=== PATIENT | female | born 1985 | race Hispanic/Latino ===

== ENCOUNTER 2016-06-13 10:34 | Emergency (ER) | payer MEDICAID ==
[2016-06-13 11:12] LABS: URINE RBC NONE SEEN (0-5/hpf)
[2016-06-13 11:20] LABS: URINE APPEARANCE CLEAR; URINE BILIRUBIN NEGATIVE (NEGATIVE); URINE COLOR YELLOW; URINE GLUCOSE NORMAL (NEGATIVE); URINE KETONE 10mg/dL (1+) (NEGATIVE); URINE LEUKOCYTE ESTERASE NEGATIVE (NEGATIVE); URINE NITRITE NEGATIVE (NEGATIVE); URINE PROTEIN NEGATIVE (NEG - TRACE); URINE SPECIFIC GRAVITY > OR = 1.030 (0.001-1.035); URINE UROBILINOGEN 0.2mg/dL (Normal) (NEG-1mg/dL)
[2016-06-13 11:21] LABS: URINE BLOOD NEGATIVE (NEGATIVE); URINE MUCUS UP TO 25%/lpf (Up to 25%); URINE SQUAMOUS EPITHELIAL CELL 0-5/hpf (<= 15/hpf); URINE WBC 0-4/hpf (0-4/hpf)
[2016-06-13] MEDS ORDERED: HYDROmorphone HCL 1 MG/ML SYR ONE (11:39)
[2016-06-13] MEDS ORDERED: ONDANSETRON HCL 4 MG/2 ML VIAL ONE (11:39)
[2016-06-13] MEDS ORDERED: KETOROLAC TROMETHAMINE 30 MG/ML VIAL ONE (11:39)
[2016-06-13 11:42] LABS: BASOPHILS 0.3 % (0.0-2.0); EOSINOPHILS 1.3 % (0.0-6.0); EOSINOPHILS# 0.1 X 10^3uL (0.0-0.4); HEMATOCRIT 37.4 % (36.0-48.0); HEMOGLOBIN 12.5 g/dL (12.0-16.0); LYMPHOCYTES 33.6 % (20.0-40.0); LYMPHOCYTES# 2.1 X 10^3uL (0.8-3.8); MEAN CELL VOLUME 79.8 fL (80.0-100.0); MEAN CORPUS. HGB CONCENTRATION 33.5 g/dL (32.0-36.0); MEAN CORPUSCULAR HEMOGLOBIN 26.8 pg (29.0-35.0); MEAN PLATELET VOLUME 7.9 fL (7.4-10.4); MONOCYTES 8.5 % (2.0-10.0); MONOCYTES# 0.5 X 10^3uL (0.2-1.0); NEUTROPHILS 56.3 % (54.0-75.0); NEUTROPHILS# 3.5 X 10^3uL (2.6-6.7); PLATELET COUNT 216 X 10^3uL (130-440); RED BLOOD COUNT 4.68 X 10^6uL (4.20-6.10); RED CELL DISTRIBUTION WIDTH 13.4 % (11.5-14.5); WHITE BLOOD COUNT 6.2 X 10^3uL (3.9-10.7)
[2016-06-13 11:54] LABS: ALBUMIN 3.8 g/dL (3.5-5.0); ALKALINE PHOSPHATASE 54 U/L (38-126); ALT 29 U/L (9-52); AST 24 U/L (14-36); BILIRUBIN, DIRECT 0.1 mg/dL (0.0-0.4); BILIRUBIN, TOTAL 0.8 mg/dL (0.2-1.3); BLOOD UREA NITROGEN 9 mg/dL (7-17); CALCIUM 8.8 mg/dL (8.4-10.2); CHLORIDE 105 mmol/L (98-107); CREATININE 0.7 mg/dL (0.5-1.0); EST GLOMERULAR FILTRATION RATE > 60 mL/min; GLUCOSE 67 mg/dL (70-100); LIPASE 161 U/L (23-300); SODIUM 138 mmol/L (137-145)
--- NOTE | 2016-06-13 12:28 | CT REPORT ---
HISTORY: Left flank pain COMPARISON: None. TECHNIQUE: This examination was performed using automated exposure control, adjustment of mA or kV according to patient size, and/or use of iterative reconstruction technique. Axial contiguous images of the abdome n and pelvis were obtained without oral or IV contrast, coronal reformat images also performed. FINDINGS: The visualized lung parenchyma and cardiac structures are unremarkable. The right and left kidneys are unremarkable. There is no hydronephrosis or hydroureter. There is no c alculus. There is no perinephric fatty stranding. There is no hepatic mass or intrahepatic biliary dilatation identified on limited noncontrast imaging . The gallbladder is unremarkable, there is no cholelithiasis or pericholecystic fluid. The spleen is unremarkable. There is no pancreatic mass or ductal dilatation. The adrenal glands are unremark able. The upper aspect of the liver and spleen were not included on the study. The stomach, small bowel and large bowel are unremarkable. There is no free intraperitoneal fluid or gas. There is no mesenteric edema or inflammatory process. Vascular structures of the abdomen and pelvis are unremarkable. No pathologic adenopathy is identified. The bladder is unremarkable. The u terus is enlarged, measuring 12 x 8 cm in the axial plane. The adnexal masses are unremarkable, excep t for a questionable left-sided cyst or mass measuring up to 2.6 cm. There is normal alignment to the lumbar spine. IMPRESSION: No evidence for renal or ureteral stone or obstruction. 2.6 cm left adnexal hypodensity most likely a ovarian cyst. Pelvic ultrasound may be helpful. Final Electronic Signature: This report was electronically signed by Mikal Sawyer MD on 06/13/2016 12 :26 PM. mera /
--- NOTE | 2016-06-13 13:19 | ER PHYSICIAN DOCUMENTATION ---
Physician Documentation [facility] Name:Sonja Caballero Age:31 yrs Sex:Female :1985 Arrival Date:06/13/2016 Time:10:34 Bed4 Private MD:Caleb Posada ED, Chris Disposition: 06/13 12:55 Chart complete. cd Disposition: 06/13/16 12:57 Discharged to Home/Self Care. Impression: Abdominal Pain, Left Lower Quadrant. - Condition is Fair. - Discharge Instructions: ABDOMINAL PAIN, Unknown Cause, (Female), Cysts, Ovarian - OVARIAN CYST. - Prescriptions for Hydrocodone- Acetaminophen 5-325 mg Oral - take 1 tablet by ORAL route every 6 hours As needed; 10 tablet. - Medical Reconciliation form form. - Follow up: Al Black MD; When: 2 - 3 days; Reason: Recheck today's complaints, Continuance of care. - Problem is new. - Symptoms have improved. - Notes: Rest, drink plenty of fluids and take Ibuprofen 600mg by mouth every 6 hours with food for pain... or Hydrocodone one tablet by mouth every 6 hours with food for severe pain. See Dr. Chase in 2 - 3 days for follow up. HPI: 10:40 This 31 yrs old Female presents to ER via Private Vehicle with complaints of cd Abdominal Pain. 10:40 The patient presents with abdominal pain in the left lower quadrant. Onset: The cd symptoms/episode began/occurred yesterday, she reports Ibuprofen helped yesterday, but not today.. The symptoms do not radiate. Associated signs and symptoms: Pertinent positives: blood in stools, constipation, diarrhea, fever, nausea, vaginal discharge, vaginal bleeding, vomiting, Pertinent negatives: anorexia. The symptoms are described as achy, constant. Severity of pain: At its worst the pain was moderate in the emergency department the pain is unchanged. Risk factors for ectopic : none. Patient does report having an Ovarian Cyst in the past. The patient has experienced a previous episode, and the symptoms today are exactly the same. 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 st Historical: - Allergies: No known drug Allergies; - Home Meds: 1. None - PMHx: ENDOMETROSIS; OVARIAN CYST; - PSHx: cyst removals; - Tetanus: < 10 years. - Ebola Screening: : Patient denies exposure to infectious person. Patient denies travel to an Ebola-affected area in the 21 days before illness onset. . - Social history: Smoking status: Patient states was never smoker of tobacco. Patient/guardian denies using alcohol, marijuana. ROS: 11:00 Constitutional: Negative for chills, fever, poor PO intake. cd 11:00 Abdomen/GI: Positive for abdominal pain, anorexia, Negative for nausea, vomiting, diarrhea, hematemesis, black/tarry stool, rectal bleeding. 11:00 : Positive for pelvic pain, Negative for urinary symptoms, flank pain, burning with urination, foul smelling urine. 11:00 All other systems are negative. Exam: 11:10 ENT: Nares patent. No nasal discharge, no septal abnormalities noted. Tympanic cd membranes are normal and external auditory canals are clear. Oropharynx with no redness, swelling, or masses, exudates, or evidence of obstruction, uvula midline. Mucous membranes moist. Back: No spinal tenderness. No costovertebral tenderness. Full range of motion. Skin: Warm, dry with normal turgor. Normal color with no rashes, no lesions, and no evidence of cellulitis. 11:10 MS/ Extremity: Pulses equal, no cyanosis. Neurovascular intact. Full, normal range cd of motion. 11:10 Constitutional: The patient appears alert, awake, non-diaphoretic, non-toxic, well developed, well nourished, anxious, in obvious distress, moderately distressed. 11:10 Cardiovascular: Rate: bradycardic, Rhythm: regular. 11:10 Respiratory: the patient does not display signs of respiratory distress, Breath sounds: are normal. 11:10 Abdomen/GI: Inspection: abdomen appears normal, Bowel sounds: normal, Palpation: moderate abdominal tenderness, in the left lower quadrant, mass, is not appreciated, rebound tenderness, is not appreciated, voluntary guarding, is not appreciated, involuntary guarding, is not appreciated, no appreciated organomegaly, Indicators: McBurney's point is not tender, Lara's sign is negative. 11:10 Neuro: Awake and alert, GCS 15, oriented to person, place, time, and situation. cd Cranial nerves II-XII grossly intact. Motor strength 5/5 in all extremities. Sensory grossly intact. Cerebellar exam normal. Normal gait. Vital Signs: 10:55 BP 116 / 60; Pulse 72; Resp 18; Temp 97.5; Pulse Ox 97% on R/A; Pain 7/10; st 11:50 Pain 4/10; st 11:50 BP 96 / 61 (auto/); st 11:52 Pulse Ox 99% on 2 lpm NC; st 12:00 BP 94 / 55 (auto/); Pulse 54; st 12:02 Pulse Ox 99% ; st 12:30 BP 93 / 54 (auto/); Pulse 54; st 12:32 Pulse Ox 99% ; st 13:02 Pain 0/10; st MDM: 10:45 Data interpreted: Pulse oximetry: on room air is 99 %. Interpretation: normal. cd 10:46 Patient medically screened. cd 11:20 Differential diagnosis: diverticulitis, Ectopic , Endometriosis, Ovarian cd Torsion, Pyelonephritis, Ureterolithiasis, urinary tract infection, Ovarian Cyst. 11:25 Data reviewed: vital signs, nurses notes, old medical records, lab test result(s), and cd as a result, I will continue to observe the patient, order radiologic studie(s), CT scan, administer IV fluids, NS bolus, NS maintenence, prescribe pain medication, Dilaudid, Toradol. 12:50 Counseling: I had a detailed discussion with the patient and/or guardian regarding: the cd historical points, exam findings, and any diagnostic results supporting the discharge/admit diagnosis, lab results, radiology results, the need for outpatient follow up, for a recheck, for a referral to a specialist, an OB/Gyne specialist, to return to the emergency department if symptoms worsen or persist or if there are any questions or concerns that arise at home. 12:55 Response to treatment: the patient's symptoms have resolved after treatment, the cd patient's condition has returned to base line, the patient is now symptom free, patient is well hydrated. and as a result, I will discharge patient. 06/13 11:22 Order name: UA W/ MICRO -CULTURE IF IND; Complete Time: 11:46 EDMS 06/13 11:46 Interpretation: Normal Except: URINE KETONE 10mg/dL (1+); URINE BACTERIA 10-20 cd ORGANISMS/hpf; Dehydration. 06/13 11:55 Order name: CBC AUTO DIF, MDIF/RMOR IF IND; Complete Time: 12:02 EDMS 06/13 12:40 Interpretation: Normal. cd 06/13 11:55 Order name: BASIC METABOLIC PANEL; Complete Time: 12:02 EDMS 06/13 Interpretation: Normal Except: GLUCOSE 67; Normal. cd 06/13 11:55 Order name: HEPATIC PANEL; Complete Time: 12:02 EDMS 06/13 12:40 Interpretation: Normal. cd 06/13 11:55 Order name: LIPASE; Complete Time: 12:02 EDMS 06/13 12:41 Interpretation: Normal. cd 06/13 11:59 Order name: HCG, SERUM; Complete Time: 12:02 EDMS 06/13 12:41 Interpretation: Normal. cd 06/13 12:30 Order name: CAT SCAN; ABD/[place] [id number]; Complete Time: 12:56 EDMS 06/15 09:52 Interpretation: Abnormal: See Report. 06/13 10:51 Order name: Urine Dip; Complete Time: 10:52 st 06/13 11:13 Order name: NPO; Complete Time: 11:25 cd Dispensed Medications: 11:25 Drug: NS 0.9% 1000 ml; Route: IV; Rate: bolus; Site: right antecubital; st 13:04 Follow up: IV Status: Completed infusion; IV Intake: 1000ml st 11:34 Drug: Zofran 4 mg; Route: IVP; Infused Over: 2 mins; Site: right antecubital; st 11:50 Follow up: Response: Nausea is decreased st 11:34 Drug: Dilaudid 0.5 mg; Route: IVP; Site: right antecubital; st 11:51 Follow up: Response: Pain is decreased st 11:34 Drug: Toradol 30 mg; Route: IVP; Site: right antecubital; st 11:51 Follow up: Response: Pain is decreased st Point of Care Testing: Urine Dip: 10:52 pH: 5.0; ; Specific [place]: 1.030; Ketones: Small; Glucose: Negative; Protein: st Negative; Leukocytes: Negative; Nitrite: Negative ; Blood: Negative; Bilirubin: Negative ; Urobilinogen: Normal Signatures: Nava Rao RN RN st Daley, Chris, MD MD cd
--- NOTE | 2016-06-13 13:19 | ER NURSING DOCUMENTATION ---
Nurse's Notes [facility] [place] Name:Sonja Caballero Age:31 yrs Sex:Female :1985 Arrival Date:06/13/2016 Time:10:34 Bed4 Private MD:Caleb Posada Diagnosis:Abdominal Pain, Left Lower Quadrant Presentation: 06/13 10:40 Acuity: WINTER 3 st 10:53 Presenting complaint: Patient states: pt states she had left flank pain into the LLQ st starting yesterday. yesterday Motrin help today it did not. Transition of care: Home. 10:53 Method Of Arrival: Private Vehicle st Triage Assessment: 10:54 General: Appears in no apparent distress, Behavior is cooperative. Pain: Complains of st pain in posterior aspect of left lateral abdomen and left lower quadrant Pain currently is 7 out of 10 on a pain scale. Quality of pain is described as aching, Pain began 1 day ago. Cardiovascular: No deficits noted. Respiratory: No deficits noted. GI: Abdomen is flat, non- distended Abd is soft and non tender X 4 quads. : Urine is clear, Denies burning with urination, inability to void, urinary frequency, vaginal bleeding. 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 st Historical: - Allergies: No known drug Allergies; - Home Meds: 1. None - PMHx: ENDOMETROSIS; OVARIAN CYST; - PSHx: cyst removals; - Tetanus: < 10 years. - Ebola Screening: : Patient denies exposure to infectious person. Patient denies travel to an Ebola-affected area in the 21 days before illness onset. . - Social history: Smoking status: Patient states was never smoker of tobacco. Patient/guardian denies using alcohol, marijuana. Screenin:56 Infectious Disease Risk None. Abuse screen: Denies threats or abuse. Denies injuries st from another. pt states she feels safe at home. Nutritional screening: No deficits noted. Assessment: 11:50 General: pt resting quielty.. st 13:02 General: pt feeling much better. . st Vital Signs: 10:55 BP 116 / 60; Pulse 72; Resp 18; Temp 97.5; Pulse Ox 97% on R/A; Pain 7/10; st 11:50 Pain 4/10; st 11:50 BP 96 / 61 (auto/); st 11:52 Pulse Ox 99% on 2 lpm NC; st 12:00 BP 94 / 55 (auto/); Pulse 54; st 12:02 Pulse Ox 99% ; st 12:30 BP 93 / 54 (auto/); Pulse 54; st 12:32 Pulse Ox 99% ; st 13:02 Pain 0/10; st ED Course: 10:35 Patient arrived in ED. ama 10:35 Caleb Posada MD is Private Physician. ama 10:40 Nava Rao RN is Primary Nurse. st 10:[address] 10:46 Sang Lopez MD is Attending Physician. cd 10:52 Urine collected. Clean catch specimen. st 10:56 Valuables Remains with patient Patient has correct armband on for positive st identification. Placed in gown. Bed in low position. Call light in reach. Side rails up X 1. Pulse Ox - RN Monitoring Only NIBP On - RN Monitoring Only. 11:26 Inserted peripheral IV: 20 gauge in right antecubital area and blood collected. Missed st attempts: 20 gauge X 1 in left antecubital area. 12:[address] moira 12:[address] Patient [address] back from [address]. moira 12:56 Al Black MD is Referral Physician. cd 13:02 Diet: Patient given juice. st Administered Medications: 11:25 Drug: NS 0.9% 1000 ml; Route: IV; Rate: bolus; Site: right antecubital; st 13:04 Follow up: IV Status: Completed infusion; IV Intake: 1000ml st 11:34 Drug: Zofran 4 mg; Route: IVP; Infused Over: 2 mins; Site: right antecubital; st 11:50 Follow up: Response: Nausea is decreased st 11:34 Drug: Dilaudid 0.5 mg; Route: IVP; Site: right antecubital; st 11:51 Follow up: Response: Pain is decreased st 11:34 Drug: Toradol 30 mg; Route: IVP; Site: right antecubital; st 11:51 Follow up: Response: Pain is decreased st Point of Care Testing: Urine Dip: 10:52 pH: 5.0; ; Specific [place]: 1.030; Ketones: Small; Glucose: Negative; Protein: st Negative; Leukocytes: Negative; Nitrite: Negative ; Blood: Negative; Bilirubin: Negative ; Urobilinogen: Normal Intake: 13:04 IV: 1000ml; Total: 1000ml. st Outcome: 12:57 Discharge ordered by . dank 13:02 IV D/Johan st 13:15 Discharged to home ambulatory. st 13:15 Condition: improved 13:15 Discharge instructions given to patient, Instructed on discharge instructions, follow up and referral plans. medication usage, Prescriptions given X 1. 13:18 Patient [address] the ED. st 04/ 12:18 Discharge F/U Call: Unable to reach: non-working number alec Signatures: Nava Rao, RN RN Mallory Dobbs RN RN Sang Martinez MD MD cd Abbott, Arvind Cervantes, Bret Reg ama
== END 2016-06-13 13:18 | disposition home or self-care (01) ==
LOC: ER 10:34
DX: R10.32 Left lower quadrant pain (principal); E86.0 Dehydration; Z87.42 Personal history of other diseases of the female genital tract
CPT/HCPCS: 74176; 80048; 80076; 81001; 83690; 84703; 85025; 96361; 96374; 96375; 99284; J1170; J1885; J2405